=== PATIENT | male | born 1930 | race Caucasian/White ===

== ENCOUNTER → 2019-02-16 | Outpatient (CLI) | payer MEDICARE, BC ==
[2019-02-16 09:03] LABS: HCT 40.8 % (39.0-53.0); HGB 13.4 gm/dL (13.0-17.5); MCH 30.9 pg (25.0-35.0); MCHC 32.8 g/dL (31.0-37.0); MCV 94.4 fL (80.0-100.0); Mean Platelet Volume 7.7; Platelet Count 143 k/uL (150-450); RBC 4.33 m/uL (4.30-5.90); RDW 12.8 % (11.5-15.5); WBC 3.9 k/uL (3.8-10.6)
[2019-02-16 15:55] LABS: African American GFR (CKD) 78.1 (60.0-200.0); Anion Gap 9.6 mmol/L (4.00-12.00); Carbon Dioxide 26.4 mmol/L (21.6-31.8); Chol/HDL Ratio 2.47; LDL Cholesterol,Calculated 60.8 mg/dL (0.0-131.0); Non-African American GFR(CKD) 67.4 (60.0-200.0); VLDL Calculation 14.2 mg/dL (5.00-40.00)
== END | disposition home or self-care (01) ==
LOC: LABWHC1 08:18
PROVIDERS: ATTEND Internal Medicine Cardiovascular Disease
DX: E78.2 Mixed hyperlipidemia (principal); I48.11 Longstanding persistent atrial fibrillation
CPT/HCPCS: 36415; 80051; 80061; 82565; 84443; 84450; 84460; 84520; 85027

== ENCOUNTER 2020-10-06 22:31 | Observation (INO) | payer MEDICARE, BC ==
[2020-10-06] MEDS ORDERED: SODIUM CHLORIDE 0.9% 1,000 ML IV STA (22:34)
[2020-10-06] MEDS ORDERED: ONDANSETRON 4 MG/2 ML VIAL IVP STA (22:34)
[2020-10-06] MEDS ORDERED: MAG HYDROX/AL HYDROX/SIMETH 30 ML, HYOSCYAMINE ELIXIR 10 ML PO STA ×2 (22:34)
[2020-10-06] MEDS ORDERED: PANTOPRAZOLE 40 MG/10 ML VIAL IVP STA (22:34)
[2020-10-06 23:19] LABS: Basophils % (A) 0 %; Eosinophils # (A) 0.1 k/uL (0-0.7); Eosinophils % (A) 1 %; HCT 34.6 % (39.0-53.0); HGB 12.3 gm/dL (13.0-17.5); Lymphocytes # (A) 0.5 k/uL (1.0-4.8); Lymphocytes % (A) 7 %; MCH 33.2 pg (25.0-35.0); MCHC 35.6 g/dL (31.0-37.0); MCV 93.3 fL (80.0-100.0); Mean Platelet Volume 8.1; Monocytes # (A) 0.7 k/uL (0-1.0); Monocytes % (A) 10 %; Neutrophils # (A) 5.9 k/uL (1.3-7.7); Neutrophils % (A) 81 %; Platelet Count 146 k/uL (150-450); RBC 3.71 m/uL (4.30-5.90); RDW 12.7 % (11.5-15.5); WBC 7.3 k/uL (3.8-10.6)
--- NOTE | 2020-10-06 23:24 | XR ---
EXAMINATION TYPE: XR chest 2V DATE OF EXAM: 10/06/2020 COMPARISON: 08/03/2012 HISTORY: Weakness TECHNIQUE: FINDINGS: There is some coarse interstitial density in the mid and lower lung orozco. Heart appears e nlarged. There are sternal wires. Thoracic aorta is atheromatous. There are chest leads. There is no pleural effusion. IMPRESSION: Pulmonary interstitial infiltrates could be mild edema and appears new compared to old ex am. Mild acute heart failure is possible.
[2020-10-06 23:30] LABS: Partial Thromboplastin Time 25.1 sec (22.0-30.0); Prothrombin Time 10.8 sec (9.0-12.0)
[2020-10-06 23:40] LABS: ALT 13 U/L (4-49); AST 29 U/L (17-59); African American GFR (CKD) >90 (>60 ml/min/1.73 sqM); Alkaline Phosphatase 69 U/L (38-126); Anion Gap 10 mmol/L; Blood Urea Nitrogen 10 mg/dL (9-20); Calcium 9.1 mg/dL (8.4-10.2); Carbon Dioxide 23 mmol/L (22-30); Chloride 105 mmol/L (98-107); Creatine Kinase 64 U/L (55-170); Glucose 123 mg/dL (74-99); Magnesium 1.5 mg/dL (1.6-2.3); Non-African American GFR(CKD) 79 (>60 ml/min/1.73 sqM); Phosphorus 3.2 mg/dL (2.5-4.5); Potassium 3.8 mmol/L (3.5-5.1); Sodium 138 mmol/L (137-145); Total Bilirubin 0.4 mg/dL (0.2-1.3); Total Protein 6.4 g/dL (6.3-8.2)
--- NOTE | 2020-10-06 23:53 | ED ---
Chest Pain HPI - General Chief Complaint: Chest Pain Stated Complaint: heartburn Time Seen by Provider: 10/06/20 22:33 Source: patient, EMS, RN notes reviewed, old records reviewed Mode of arrival: EMS Limitations: no limitations - History of Present Illness Initial Comments: This is an 81-year-old male DF for evaluation patient Dese for evaluation rega rds to some chest pain and some neck pain that occurred tonight. May be going on for 2 or 3 days at this point. Patient does have history of heart disease and CABG. Patient is suffering from some mild dementia so is a poor story and also having difficulty with history. Son is at bedside only altered to combined to tell history. Patient states the pain is episodic for the last 3 days some nausea feels like reflux or burning pain. Patient also has significant lower extremity edema and swelling MD Complaint: chest pain, other (Lower extremity edema) -: days(s) Onset: during rest, during exertion Pain Location: substernal Pain Radiation: none Severity: mild Severity scale (1-10): 2 Quality: tightness, sharp Consistency: intermittent Improves With: nothing Worsens With: nothing Context: other (none) Anginal Symptoms: nausea Other Symptoms: other (none) Treatments Prior to Arrival: none - Related Data Home Medications Medication Instructions Recorded Confirmed Aspirin 325 mg PO DAILY 11/29/13 11/30/13 Atenolol 50 mg PO DAILY 11/29/13 11/30/13 Cyanocobalamin [Vitamin B-12] 1,000 mcg PO DAILY@1200 11/29/13 11/30/13 Enalapril [Vasotec] 10 mg PO DAILY 11/29/13 11/30/13 Isosorbide Mononitrate [Imdur] 30 mg PO DAILY 11/29/13 11/30/13 Nitroglycerin Sl Tabs [Nitrostat] 0.4 mg SUBLINGUAL Q5M PRN 11/29/13 11/30/13 Omeprazole [PriLOSEC] 20 mg PO AC-BRKFST 11/29/13 11/30/13 Simvastatin [Zocor] 80 mg PO HS 11/29/13 11/29/13 minoxidiL [Minoxidil] 5 mg PO DAILY 11/29/13 11/30/13 Previous Rx's Medication Instructions Recorded HYDROcodone/APAP 7.5-325MG [[place] 1 each PO Q4H PRN 30 Days tab 12/03/13 7.5] Allergies Allergy/AdvReac Type Severity Reaction Status Date / Time No Known Allergies Allergy Verified 10/06/20 22:45 Review of Systems ROS Statement: Those systems with pertinent positive or pertinent negative responses have been documented in the HPI. ROS Other: All systems not noted in ROS Statement are negative. EKG Findings - EKG Comments: EKG Findings:: EKG shows A. fib 70 QRS 90 QTC 414 Past Medical History Past Medical History: Coronary Artery Disease (CAD), Cancer, Chest Pain / Angina, GERD/Reflux, Hyperlipidemia, Hypertension History of Any Multi-Drug Resistant Organisms: None Reported Past Surgical History: Bowel Resection, Coronary Bypass/CABG Additional Past Surgical History / Comment(s): CABG 2001, colon colostomy Past Psychological History: No Psychological Hx Reported Smoking Status: Former smoker Past Alcohol Use History: Daily Past Drug Use History: None Reported General Exam General appearance: alert, in no apparent distress Head exam: Present: atraumatic, normocephalic, normal inspection Eye exam: Present: normal appearance, PERRL, EOMI. Absent: scleral icterus, conjunctival injection, periorbital swelling ENT exam: Present: normal exam, mucous membranes moist Neck exam: Present: normal inspection. Absent: tenderness, meningismus, lymphadenopathy Respiratory exam: Present: normal lung sounds bilaterally. Absent: respiratory distress, wheezes, rales, rhonchi, stridor Cardiovascular Exam: Present: regular rate, normal rhythm, normal heart sounds. Absent: systolic murmur, diastolic murmur, rubs, gallop, clicks GI/Abdominal exam: Present: soft, normal bowel sounds. Absent: distended, tenderness, guarding, rebound, rigid Extremities exam: Present: normal inspection, full ROM, normal capillary refill, other (BL LE edema). Absent: tenderness, pedal edema, joint swelling, calf tenderness Back exam: Present: normal inspection Neurological exam: Present: alert, oriented X3, CN II-XII intact Psychiatric exam: Present: normal affect, normal mood Skin exam: Present: warm, dry, intact, normal color. Absent: rash Course Vital Signs 10/06/20 10/06/20 10/06/20 22:32 23:00 23:20 Temperature 98.2 F Pulse Rate 87 85 Pulse Rate [ 78 [employer] ] Respiratory 18 16 Rate Blood Pressure 195/108 204/107 O2 Sat by Pulse 98 98 Oximetry 10/06/20 23:30 Temperature Pulse Rate 80 Pulse Rate [ [employer] ] Respiratory 18 Rate Blood Pressure 169/100 O2 Sat by Pulse 98 Oximetry - Reevaluation(s) Reevaluation #1: 10/07/20 00:29 Medical record is reviewed Reevaluation #2: 10/07/20 00:29 Patient's chest pain is episodic but recurrent here in the ER Reevaluation #3: 10/07/20 00:29 Patient has no shortness of breath - Consultations Consultation #1: Spoke with EM who will admit this patient Chest Pain MDM - MDM 89 male to the ER for evaluation patient presents today for evaluation regards to chest pain some shortness of breath lower extremity edema. Patient does have persistent chest pain here in the ER troponin negative elevated BNP with pulmonary edema. No trauma edema we will admit for diuresis Disposition Clinical Impression: Chest pain, Bilateral leg edema, CHF (congestive heart failure), Pulmonary edema Disposition: ADMITTED IP TO THIS HOSP Condition: Good Is patient prescribed a controlled substance at d/c from ED?: No Referrals: [facility],Clinic [Primary Care Provider] - 1-2 days
[2020-10-07 01:01] LABS: Appearance,Urine Clear (Clear); Bilirubin,Urine Negative (Negative); Blood,Urine Negative (Negative); Color,Urine Yellow; Glucose,Urine (UA) Negative (Negative); Hyaline Casts,Urine 20 /lpf (0-2); Ketones,Urine Negative (Negative); Leukocyte Esterase,Urine Negative (Negative); Mucus,Urine Rare /hpf; Nitrite,Urine Negative (Negative); PH, Urine 5.5 (5.0-8.0); Protein,Urine 1+ (Negative); RBC,Urine 1 /hpf (0-5); Specific Gravity,Urine 1.018 (1.001-1.035); Squamous Epithelial Cell,Urine <1 /hpf (0-4); Urobilinogen,Urine <2.0 mg/dL (<2.0); WBC,Urine 1 /hpf (0-5)
[2020-10-07] MEDS: FUROSEMIDE 10 MG/ML 4 ML VIAL IV SCH ×3 (01:38→19:37)
[2020-10-07] MEDS ORDERED: QUEtiapine 25 MG TAB PO PRN ×3 (11:23→14:36)
[2020-10-07] MEDS: lisinopriL 20 MG TAB PO SCH (12:43)
[2020-10-07] MEDS: atenoloL 50 MG TAB PO SCH (12:44)
[2020-10-07] MEDS: ISOSORBIDE MONONITRATE ER 30 MG TAB.ER.24H PO SCH (12:44)
--- NOTE | 2020-10-07 12:49 | CONS ---
CONSULTATION HISTORY OF PRESENT ILLNESS: Jose is an 89-year-old gentleman with a history of dementia, coronary artery disease status post CABG, who is brought in with symptoms of chest pain. He describes it as a sharp pericardial pain associated with some nausea and also has bilateral lower extremity edema. He is admitted for diagnosis of chest pain and heart failure. At the time of my evaluation this morning, he appears comfortable at rest. Blood pressure is poorly controlled. Three sets of cardiac enzymes are negative. EKG shows atrial fibrillation with nonspecific ST-T wave changes. Patient is not a candidate for long- term anticoagulation because of risk of fall. PAST MEDICAL HISTORY: Past medical history significant for permanent atrial fibrillation, hypertension, dyslipidemia, coronary artery disease status post coronary artery bypass grafting. MEDICATIONS: Current medications include minoxidil 5 mg daily. Zocor 80 mg daily, Prilosec 20, Imdur 30, [place], enalapril, atenolol, aspirin. ALLERGIES: There are no known drug allergies. Family history, social history and review of systems: I am unable to obtain from the patient. PHYSICAL EXAMINATION: On exam, patient is comfortable at rest. Afebrile. Heart rate is 80 beats per minute. Blood pressure 127/57. Respiratory rate is 18. CHEST exam reveals good air entry bilaterally. HEART exam reveals first and second heart sounds and a systolic murmur at the apex. ABDOMEN is soft. Exam of EXTREMITIES: There is bilateral 2+ pitting edema. Peripheral pulses are felt. LABORATORY DATA: Labs show a potassium of 3.8, creatinine is 0.8. Hemoglobin is 12.3. Platelet count is 146. BNP is elevated. ASSESSMENT: 1. Acute exacerbation of chronic congestive heart failure. 2. Precordial chest pain. 3. Dementia. 4. Status post CABG. 5. Permanent atrial fibrillation. PLAN: We will treat the patient with IV Lasix. Obtain a 2D echo. Continue simvastatin, Imdur, Vasotec, atenolol and aspirin that he is currently on. The patient is not a candidate for anticoagulation because of his risk of fall. MMODL / IJN: [id number] /
--- NOTE | 2020-10-07 13:09 | P.HPIM ---
History of Present Illness 89-year-old the female was admitted for chest pain patient although denied any chest pain to me apparently patient was complaining of for sore throat and chest congestion as today because of which his is concerned and brought him to ER. Patient has a significant dementia appears to be a and 1-2 which is his baseline although patient is able to provide good history. Patient dementia has been worsening and his is thinking of placing him in the [facility]. Patient is unable to characterize the chest pain denied any radiation denied any lightheadedness nausea or diaphoresis associated with that patient chest pain is nonpleuritic. Apparently patient was complaining of episodic burning in ER and patient was started on Protonix. Patient was also having bilateral pedal has been going on for about a half weeks. Patient had BNP of around 2200 REVIEW OF SYSTEMS: All other review of systems are negative except those mentioned above PHYSICAL EXAMINATION: GENERAL: The patient is alert and oriented x3, not in any acute distress. Well developed, well nourished. HEENT: Pupils are round and equally reacting to light. EOMI. No scleral icterus. No conjunctival pallor. Normocephalic, atraumatic. Patient does have pharyngeal erythema. No thyromegaly. CARDIOVASCULAR: S1 and S2 present. No murmurs, rubs, or gallops. PULMONARY: Chest is clear to auscultation, no wheezing or crackles. ABDOMEN: Soft, nontender, nondistended, normoactive bowel sounds. No palpable organomegaly. MUSCULOSKELETAL: No joint swelling or deformity. EXTREMITIES: No cyanosis, clubbing, extensive bilateral pedal edema mostly non pitting is mild pitting edema NEUROLOGICAL: Gross neurological examination did not reveal any focal deficits. SKIN: No rashes. Assessment and plan -Chest pain atypical: Troponins were negative, EKG showed atrial fibrillation. Patient appears to have permanent A. fib patient is on Eliquis at home which will be resumed-Permanent atrial fibrillation not on any anti-correlation at this time. 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 -Bilateral lower extremity edema mostly appears to be secondary to venous insufficiency there may be a competent of heart failure as well as echocardiogram is being obtained patient is on IV Lasix which will be continued -Coronary artery disease with previous history of CABG in the past -Hyperlipidemia -Hypertension -Gastroesophageal reflux disease For above-mentioned chronic medical problems patient will be resumed on appropriate home medications although home medications are not verified ye1-2 DVT prophylaxis: Past Medical History Past Medical History: Coronary Artery Disease (CAD), Cancer, Chest Pain / Angina, GERD/Reflux, Hyperlipidemia, Hypertension History of Any Multi-Drug Resistant Organisms: None Reported Past Surgical History: Bowel Resection, Coronary Bypass/CABG Additional Past Surgical History / Comment(s): CABG 2001, colon colostomy Past Psychological History: No Psychological Hx Reported Smoking Status: Unknown if ever smoked Past Alcohol Use History: Daily Past Drug Use History: None Reported Medications and Allergies Home Medications Medication Instructions Recorded Confirmed Type Aspirin 325 mg PO DAILY 11/29/13 10/07/20 History Atenolol 50 mg PO DAILY 11/29/13 10/07/20 History Cyanocobalamin [Vitamin B-12] 1,000 mcg PO DAILY@1200 11/29/13 11/30/13 History Enalapril [Vasotec] 10 mg PO DAILY 11/29/13 11/30/13 History Isosorbide Mononitrate [Imdur] 30 mg PO DAILY 11/29/13 11/30/13 History Nitroglycerin Sl Tabs [Nitrostat] 0.4 mg SUBLINGUAL Q5M PRN 11/29/13 11/30/13 History Omeprazole [PriLOSEC] 20 mg PO AC-BRKFST 11/29/13 11/30/13 History Simvastatin [Zocor] 80 mg PO HS 11/29/13 11/29/13 History minoxidiL [Minoxidil] 2.5 mg PO BID 11/29/13 11/30/13 History HYDROcodone/APAP 7.5-325MG [[place] 1 each PO Q4H PRN 30 Days tab 12/03/13 Rx 7.5] Apixaban [Eliquis] 2.5 mg PO BID 10/07/20 10/07/20 History Spironolactone 50 mg PO DAILY 10/07/20 10/07/20 History Allergies Allergy/AdvReac Type Severity Reaction Status Date / Time No Known Allergies Allergy Verified 10/07/20 12:05 Physical Exam Vitals: Vital Signs Temp Pulse Pulse Pulse Resp BP BP 10/07/20 12:42 80 169/74 10/07/20 07:10 98.3 F 83 16 166/103 10/07/20 02:23 97.5 F L 98 20 157/70 10/07/20 01:41 98.2 F 76 16 185/96 10/07/20 01:00 66 18 179/85 10/07/20 00:47 73 18 173/88 10/07/20 00:00 177/89 10/06/20 23:30 80 18 169/100 10/06/20 23:20 78 10/06/20 23:00 85 16 204/107 10/06/20 22:32 98.2 F 87 18 195/108 Pulse Ox 10/07/20 12:42 10/07/20 07:10 99 10/07/20 02:23 98 10/07/20 01:41 100 10/07/20 01:00 98 10/07/20 00:47 10/07/20 00:00 98 10/06/20 23:30 98 10/06/20 23:20 10/06/20 23:00 98 10/06/20 22:32 98 Intake and Output 10/06/20 10/07/20 10/07/20 22:59 06:59 14:59 Output Total 300 Balance -300 Output: Stool 300 Other: # Voids 2 Weight 79.379 kg 79.379 kg Results CBC & Chem 7: 10/06/20 23:00 10/06/20 23:00 Labs: Abnormal Lab Results - Last 24 Hours (Table) 10/06/20 10/06/20 10/07/20 Range/Units 23:00 23:00 00:38 RBC 3.71 L (4.30-5.90) m/uL Hgb 12.3 L (13.0-17.5) gm/dL Hct 34.6 L (39.0-53.0) % Plt Count 146 L (150-450) k/uL Lymphocytes # 0.5 L (1.0-4.8) k/uL Glucose 123 H (74-99) mg/dL Magnesium 1.5 L (1.6-2.3) mg/dL Urine Protein 1+ H (Negative) Hyaline Casts 20 H (0-2) /lpf Urine Mucus Rare H (None) /hpf Thrombosis Risk Factor Assmnt - Choose All That Apply Each Risk Factor Represents 3 Points: Age 75 years or older Thrombosis Risk Factor Assessment Total Risk Factor Score: 3 Thrombosis Risk Factor Assessment Level: Moderate Risk
[2020-10-07] MEDS: MAGNESIUM SULFATE-D5W PMX 1 GM in DEXTROSE/WATER 1 100ML.BAG IVPB SCH ×2 (14:27→15:40)
[2020-10-07] MEDS: APIXABAN 2.5 MG TABLET PO SCH (19:37)
[2020-10-07] MEDS ORDERED: ATORVASTATIN 40 MG TAB PO SCH (21:00)
[2020-10-08 05:57] LABS: African American GFR (CKD) 68 (>60 ml/min/1.73 sqM); Anion Gap 9 mmol/L; Blood Urea Nitrogen 14 mg/dL (9-20); Calcium 9.2 mg/dL (8.4-10.2); Carbon Dioxide 27 mmol/L (22-30); Chloride 103 mmol/L (98-107); Glucose 94 mg/dL (74-99); Non-African American GFR(CKD) 59 (>60 ml/min/1.73 sqM); Potassium 4.4 mmol/L (3.5-5.1); Sodium 139 mmol/L (137-145)
[2020-10-08 07:23] VITALS: RESP 16; TEMP 97.7
[2020-10-08] MEDS ORDERED: PANTOPRAZOLE 40 MG TABLET PO SCH (07:30)
[2020-10-08] MEDS: APIXABAN 2.5 MG TABLET PO SCH (08:26)
[2020-10-08] MEDS: ISOSORBIDE MONONITRATE ER 30 MG TAB.ER.24H PO SCH (08:26)
[2020-10-08] MEDS: lisinopriL 20 MG TAB PO SCH (08:27)
[2020-10-08] MEDS: atenoloL 50 MG TAB PO SCH (08:27)
[2020-10-08] MEDS: FUROSEMIDE 10 MG/ML 4 ML VIAL IV SCH (08:28)
[2020-10-08 08:37] VITALS: BP 127/60
[2020-10-08] MEDS ORDERED: SPIRONOLACTONE 25 MG TAB PO SCH (09:45)
[2020-10-08] MEDS ORDERED: FUROSEMIDE 40 MG TAB PO SCH (09:45)
--- NOTE | 2020-10-08 10:43 | P.PN ---
Subjective This is a pleasant 89-year-old male past medical history significant for coronary artery disease status post bypass grafting, hypertension, dyslipidemia, dementia, daily alcohol intake and heart failure of unknown type. He follows at the [facility] clinic. He is seen and examined resting comfortably lying flat in bed in no acute distress. He denies symptoms of chest pain or shortness of breath. He has ongoing lower extremity edema. Family is at the bedside. We are currently awaiting an echocardiogram. Blood pressure 127/60 heart rate 57 afebrile maintaining oxygen saturation on room air. Laboratory data reviewed, sodium 139, potassium 4.4, creatinine 1.11. Currently maintained on Eliquis 2.5 mg twice a day, atenolol 50 mg daily, atorvastatin 40 mg daily, Imdur 30 mg daily, lisinopril 20 mg daily, Lasix 40 mg IV twice a day. Telemetry tracings reveal persistent atrial fibrillation with controlled ventricular rates. GENERAL: Well-appearing, well-nourished and in no acute distress. NECK: Supple without JVD or thyromegaly. LUNGS: Breath sounds clear to auscultation bilaterally. Respiration equal and unlabored. No wheezes, rales or rhonchi. HEART: Irregular rate and rhythm without murmurs, rubs or gallops. S1 and S2 hea rd. EXTREMITIES: Normal range of motion, 2+ bilateral lower extremity pitting edema. No clubbing or cyanosis. Peripheral pulses intact. ASSESSMENT Acute on chronic heart failure, unknown type Coronary artery disease status post bypass grafting Chronic persistent atrial fibrillation on long-term anticoagulation Hypertension Dyslipidemia Dementia Daily alcohol intake PLAN Clinically the patient appears very comfortable, we will transition to oral diuretics Lasix 40 mg by mouth daily. Resume Aldactone 50 mg daily as previously ordered. Await echocardiogram. Continue to monitor. Further recommendations to follow based upon clinical course. Nurse Practitioner note has been reviewed, I agree with a documented findings and plan of care. Patient was seen and examined. Objective - Vital Signs Vital signs: Vital Signs Temp 97.7 F 10/08/20 07:10 Pulse 64 10/08/20 08:00 Resp 16 10/08/20 07:10 BP 127/60 10/08/20 08:25 Pulse Ox 98 10/08/20 07:10 Intake & Output 10/07/20 10/08/20 10/08/20 18:59 06:59 18:59 Intake Total 520 Balance 520 Intake: IV 520 Sodium Chloride 0.9% 1, 520 000 ml @ 130 mls/hr IV . Q7H42M STA Rx#:[id number] Other: # Voids 5 3 # Bowel Movements 1 - Labs CBC & Chem 7: 10/06/20 23:00 10/08/20 05:05
--- NOTE | 2020-10-08 12:09 | P.DS ---
Providers Date of admission: 10/07/20 00:32 Attending physician: Charanjit Loya Consults: 10/07/20 00:31 Consult Physician Routine Consulting Provider: Orlando Edwards Consult Reason/Comments: chf,cp Do you want consulting provider notified?: Yes Primary care physician: [place] [facility] Course: 89-year-old the female was admitted for chest pain patient although denied any chest pain to me apparently patient was complaining of for sore throat and chest congestion as today because of which his is concerned and brought him to ER. Patient has a significant dementia appears to be a and 1-2 which is his baseline although patient is able to provide good history. Patient dementia has been worsening and his is thinking of placing him in the skilled nursing. Patient is unable to characterize the chest pain denied any radiation denied any lightheadedness nausea or diaphoresis associated with that patient chest pain is nonpleuritic. Apparently patient was complaining of episodic burning in ER and patient was started on Protonix. Patient was also having bilateral pedal has been going on for about a half weeks. Patient had BNP of around 2200 10/08/2020 Patient is clinically doing well patient the mental status is at his baseline. Patient chest pain resolved which is mostly musculoskeletal and secondary to chest congestion. Patient the upper respiratory symptoms improved as well patient is alert oriented 2. Patient pedal edema significant improved patient related to my most probably peripheral edema from minoxidil and vasodilation from from minoxidil which was discontinued as patient is not requiring this medication patient was hypotensive yesterday. Patient will be discharged on Lasix and kidney function he to be closely monitored. Considering patient dementia family is requesting a male physician close to where they live. PHYSICAL EXAMINATION: GENERAL: The patient is alert and oriented x2, not in any acute distress. Well developed, well nourished. HEENT: Pupils are round and equally reacting to light. EOMI. No scleral icterus. No conjunctival pallor. Normocephalic, atraumatic. Patient does have pharyngeal erythema. No thyromegaly. CARDIOVASCULAR: S1 and S2 present. No murmurs, rubs, or gallops. PULMONARY: Chest is clear to auscultation, no wheezing or crackles. ABDOMEN: Soft, nontender, nondistended, normoactive bowel sounds. No palpable organomegaly. MUSCULOSKELETAL: No joint swelling or deformity. EXTREMITIES: No cyanosis, clubbing, extensive bilateral pedal edema mostly nonpitting is mild pitting edema NEUROLOGICAL: Gross neurological examination did not reveal any focal deficits. SKIN: No rashes. Assessment and plan -Chest pain atypical: Troponins were negative, EKG showed atrial fibrillation. Patient appears to have permanent A. fib patient is on Eliquis at home which will be resumed-Permanent atrial fibrillation not on any anti-correlation at this time. 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 -Coronary artery disease with previous history of CABG in the past -Hyperlipidemia -Hypertension -Gastroesophageal reflux disease Patient Condition at Discharge: Good Plan - Discharge Summary Discharge Rx Participant: No New Discharge Prescriptions: New Aspirin 81 mg PO DAILY #30 chewable Furosemide [Lasix] 40 mg PO DAILY #30 tab Continue Nitroglycerin Sl Tabs [Nitrostat] 0.4 mg SUBLINGUAL Q5M PRN PRN Reason: Chest Pain Isosorbide Mononitrate [Imdur] 30 mg PO DAILY Cyanocobalamin [Vitamin B-12] 1,000 mcg PO DAILY@1200 Omeprazole [PriLOSEC] 20 mg PO AC-BRKFST Simvastatin [Zocor] 80 mg PO HS Atenolol 50 mg PO DAILY Apixaban [Eliquis] 2.5 mg PO BID Spironolactone 50 mg PO DAILY Changed Enalapril [Vasotec] 5 mg PO DAILY #0 Discontinued Aspirin 325 mg PO DAILY minoxidiL [Minoxidil] 2.5 mg PO BID Discharge Medication List Atenolol 50 mg PO DAILY 11/29/13 [History] Cyanocobalamin [Vitamin B-12] 1,000 mcg PO DAILY@1200 11/29/13 [History] Isosorbide Mononitrate [Imdur] 30 mg PO DAILY 11/29/13 [History] Nitroglycerin Sl Tabs [Nitrostat] 0.4 mg SUBLINGUAL Q5M PRN 11/29/13 [History] Omeprazole [PriLOSEC] 20 mg PO AC-BRKFST 11/29/13 [History] Simvastatin [Zocor] 80 mg PO HS 11/29/13 [History] Apixaban [Eliquis] 2.5 mg PO BID 10/07/20 [History] Spironolactone 50 mg PO DAILY 10/07/20 [History] Aspirin 81 mg PO DAILY #30 chewable 10/08/20 [Rx] Enalapril [Vasotec] 5 mg PO DAILY #0 10/08/20 [Rx] Furosemide [Lasix] 40 mg PO DAILY #30 tab 10/08/20 [Rx] Follow up Appointment(s)/Referral(s): Daren Mullins MD [STAFF PHYSICIAN] - 1 Week [facility],Clinic [Primary Care Provider] - 3 Days Ambulatory/Diagnostic Orders: Basic Metabolic Panel [LAB.AMB] Time Frame: 3 Days, Location: None Selected Discharge Disposition: HOME WITH HOME HEALTH SERVICES
[2020-10-08 13:38] VITALS: BMI 23.7
[2020-10-08 14:18] VITALS: PULSE 85
--- NOTE | 2020-10-08 19:00 | ECHOF ---
Referral Reason:chf, CP MEASUREMENTS -------- HEIGHT: 180.3 cm WEIGHT: 800.6 kg BP: 137/51 IVSd: 1.4 cm (0.6 - 1.1) LVIDd: 4.2 cm (3.9 - 5.3) LVPWd: 1.5 cm (0.6 - 1.1) EDV(Teich): 81 ml IVSs: 2.1 cm LVIDs: 2.3 cm LVPWs: 2.3 cm %IVS Thck: 42 % ESV(Teich): 19 ml EF(Teich): 77 % %FS: 45 % SV(Teich): 62 ml RVIDd: 2.8 cm (< 3.3) IVC: 21.55 mm LALs A4C: 7.0 cm LAAs A4C: 31.6 cm LAESV A-L A4C: 121 ml LAESV MOD A4C: 111 ml LALs A2C: 7.0 cm LAAs A2C: 31.1 cm LAESV A-L A2C: 116 ml LAESV MOD A2C: 106 ml LAESV(A-L): 119 ml LAESV Index (A-L): 22.26 ml/m Ao Diam: 3.9 cm (2.0 - 3.7) LA Diam: 4.8 cm (2.7 - 3.8) AV Cusp: 1.9 cm (1.5 - 2.6) EPSS: 0.9 cm MV E Samuel: 1.00 m/s MV DecT: 142 ms MV Dec Adams: 7.1 m/s MV A Samuel: 0.43 m/s MV E/A Ratio: 2.35 MV PHT: 41 ms MR Vmax: 4.98 m/s MR maxP.19 mmHg AV Vmax: 1.50 m/s AV maxP.04 mmHg AR Vmax: 4.08 m/s AR maxP.61 mmHg AR PHT: 1255 ms AR Dec Time: 4327 ms AR Dec Adams: 0.9 m/s TR Vmax: 2.22 m/s TR maxP.74 mmHg RAP: 15.00 mmHg RVSP: 34.74 mmHg MV EF SLOPE: 126.95 mm/s (70 - 150) MV EXCURSION: 16.01 mm (> 18.000) FINDINGS -------- This was a technically good study. The left ventricular size is normal. There is moderate concentric left ventricular hypertrophy. O verall left ventricular systolic function is normal with, an EF between 55 - 60 %. Normal LAP Grade 1 Diastolic Dysfunction. The right ventricle is normal in size. The left atrium is moderately dilated. Normal LA size by volume 22+/-6 ml/m2. The right atrial size is normal. Aneurysmal Interatrial septum. Possible ASD Aortic valve is trileaflet and is mildly thickened. There is moderate aortic regurgitation. The mitral valve is normal. Yecvuveb-fc-qufbby mitral regurgitation is present. The tricuspid valve appears structurally normal. Swkq-rf-zndqpaze tricuspid regurgitation present. Right ventricular systolic pressure is normal at < 35 mmHg. There is no pulmonic regurgitation present. The aortic root size is normal. The inferior vena cava is mildly dilated. There is a small, generalized pericardial effusion present. CONCLUSIONS -------- 1. The left ventricular size is normal. 2. There is moderate concentric left ventricular hypertrophy. 3. Overall left ventricular systolic function is normal with, an EF between 55 - 60 %. 4. Normal LAP Grade 1 Diastolic Dysfunction. 5. The left atrium is moderately dilated. 6. Normal LA size by volume 22+/-6 ml/m2. 7. Aneurysmal Interatrial septum. 8. Possible ASD 9. Aortic valve is trileaflet and is mildly thickened. 10. There is moderate aortic regurgitation. 11. Mymsllnx-fc-rcqnby mitral regurgitation is present. 12. Hkks-er-paltueod tricuspid regurgitation present. 13. The inferior vena cava is mildly dilated. 14. There is a small, generalized pericardial effusion present. SENIOR QA ANALYST: Amelia Luu, [facility]
== END 2020-10-08 15:20 | disposition home health service (06) ==
LOC: EC 22:31 → 6NMEDSUR 10-07 00:32
PROVIDERS: ADMIT Hospitalist; ATTEND Hospitalist
DX: R07.89 Other chest pain (principal); I11.0 Hypertensive heart disease with heart failure; I50.9 Heart failure, unspecified; I25.10 Atherosclerotic heart disease of native coronary artery without angina pectoris; I48.21 Permanent atrial fibrillation; F03.90 Unspecified dementia, unspecified severity, without behavioral disturbance, psychotic disturbance, mood disturbance, and anxiety; I87.2 Venous insufficiency (chronic) (peripheral); J40 Bronchitis, not specified as acute or chronic; J02.9 Acute pharyngitis, unspecified; I95.9 Hypotension, unspecified; E78.5 Hyperlipidemia, unspecified; K21.9 Gastro-esophageal reflux disease without esophagitis; Z79.01 Long term (current) use of anticoagulants; Z79.82 Long term (current) use of aspirin; Z79.899 Other long term (current) drug therapy; Z95.1 Presence of aortocoronary bypass graft; Z87.891 Personal history of nicotine dependence; Z93.3 Colostomy status; Z90.49 Acquired absence of other specified parts of digestive tract; Z91.81 History of falling; Z85.9 Personal history of malignant neoplasm, unspecified
CPT/HCPCS: 96376 ×2; 96361 ×2; 96365; 96366; 96375 ×2; 99285; 36415; 93005; 93306; 83880; 80053; 80048; 82550; 83735; 84100; 84484 ×2; 85025; 85610; 85730; 81001; 71046; G0378 ×2; J1940 ×2; J2405; J3475; C9113

== ENCOUNTER → 2020-10-19 | Outpatient (CLI) | payer MEDICARE, BC ==
[2020-10-19 16:44] LABS: Basophils # (A) 0.03 X 10*3/uL (0.00-0.10); Basophils % (A) 0.6 %; Eosinophils # (A) 0.01 X 10*3/uL (0.04-0.35); Eosinophils % (A) 0.2 %; HCT 38.5 % (39.6-50.0); HGB 12.3 g/dL (13.0-17.0); Lymphocytes # (A) 0.76 X 10*3/uL (0.90-5.00); Lymphocytes % (A) 13.9 %; MCH 31.1 pg (27.0-32.0); MCHC 31.9 g/dL (32.0-37.0); MCV 97.2 fL (80.0-97.0); Mean Platelet Volume 12.1 fL (9.5-12.2); Monocytes # (A) 0.65 X 10*3/uL (0.20-1.00); Monocytes % (A) 11.9 %; Neutrophils # (A) 3.97 X 10*3/uL (1.80-7.70); Neutrophils % (A) 72.8 %; Platelet Count 171 X 10*3/uL (140-440); RBC 3.96 X 10*6/uL (4.40-5.60); RDW 12.5 % (11.5-14.5); WBC 5.45 X 10*3/uL (4.50-10.00)
[2020-10-19 21:32] LABS: ALT 12 U/L (10-49); AST 21 U/L (14-35); African American GFR (CKD) 62.2 (60.0-200.0); Albumin/Globulin Ratio 1.95 (1.60-3.17); Alkaline Phosphatase 56 U/L (41-126); BUN/Creat Ratio 15.83 Ratio (12.00-20.00); C Reactive Protein <0.4 mg/dL (0.0-0.8); Calcium 9.2 mg/dL (8.7-10.3); Carbon Dioxide 25.4 mmol/L (21.6-31.8); Chloride 106 mmol/L (96-109); Globulin 2.2 g/dL (1.6-3.3); Glucose 103 mg/dL (70-110); Non-African American GFR(CKD) 53.7 (60.0-200.0); Potassium 4.7 mmol/L (3.5-5.5); Sodium 142 mmol/L (135-145); Total Protein 6.5 g/dL (6.2-8.2)
[2020-10-19 22:02] LABS: Erythrocyte Sedimentation Rate 10 mm/Hr (0-20)
== END | disposition home or self-care (01) ==
LOC: LABWHC1 09:19
PROVIDERS: ATTEND Family Medicine
DX: I50.9 Heart failure, unspecified (principal); R41.3 Other amnesia
CPT/HCPCS: 36415; 80053; 82607; 82746; 83880; 85025; 85652; 86038; 86140; 86780

== ENCOUNTER 2020-11-02 09:27 | Emergency (ER) | payer MEDICARE, BC ==
[2020-11-02 09:34] VITALS: TEMP 97
[2020-11-02] MEDS ORDERED: MORPHINE SULFATE 4 MG/ML SYRINGE IVP STA (09:52)
[2020-11-02 10:15] LABS: Basophils % (A) 1 %; Eosinophils % (A) 0 %; Lymphocytes # (A) 0.5 k/uL (1.0-4.8); Lymphocytes % (A) 9 %; MCH 32.7 pg (25.0-35.0); MCHC 34.3 g/dL (31.0-37.0); MCV 95.2 fL (80.0-100.0); Mean Platelet Volume 8.5; Monocytes # (A) 0.4 k/uL (0-1.0); Monocytes % (A) 8 %; Neutrophils # (A) 4.4 k/uL (1.3-7.7); Neutrophils % (A) 81 %; Platelet Count 159 k/uL (150-450); RBC 3.68 m/uL (4.30-5.90); RDW 13.2 % (11.5-15.5); WBC 5.4 k/uL (3.8-10.6)
[2020-11-02 10:23] LABS: INR 1.1 (<1.2); Partial Thromboplastin Time 23.6 sec (22.0-30.0); Prothrombin Time 11.8 sec (9.0-12.0)
[2020-11-02 10:24] LABS: Albumin 3.8 g/dL (3.5-5.0); Calcium 9.4 mg/dL (8.4-10.2); Potassium 4.2 mmol/L (3.5-5.1); Total Bilirubin 0.9 mg/dL (0.2-1.3); Total Protein 6.3 g/dL (6.3-8.2)
--- NOTE | 2020-11-02 10:43 | CT ---
EXAMINATION TYPE: CT brain bryon [facility]adford DATE OF EXAM: 11/02/2020 COMPARISON: None HISTORY: 89-year-old male with pain after Fall. CT DLP: 1523.9 mGycm Automated exposure control for dose reduction was used. Technique: Examination of the head was done in axial plane without intravenous contrast. Coronal and sagittal reconstructions performed. CT of the cervical spine was obtained in axial plane without intravenous injection of contrast mater ial. Coronal and sagittal reformatted images were obtained from the axial views for evaluation of f ractures, spinal alignment and canal. FINDINGS: Head: Small 4 mm foci of parenchymal contusion age. Left frontal lobe, for example, axial image 41. Small 4 mm foci of subarachnoid blood medial left frontal region, axial image 41. There is mild acute subarachnoid hemorrhage along the left sylvian fissure, axial image 36 and 39. 1 cm extra-axial nodular area anterior right frontal convexity could represent a small meningioma. There is moderate generalized supratentorial volume loss. No evidence for acute ischemic change, mass effect, midline shift, or other additional extra-axial fl uid collection. No hydrocephalus. No effacement of basal subarachnoid cisterns. Boo-white matter dif ferentiation is maintained. Mild patchy white matter hypodensities both cerebral hemispheres and old basal ganglionic lacunar inf arcts. Paranasal sinuses and mastoid air cells are well pneumatized. Orbits and globes are intact. No calvar ial fracture. Cervical spine: No craniocervical junction abnormality, predental space widening, or prevertebral soft tissue swellin g. Preserved alignment of the cervical spine. Moderate degenerative disc disease C6-C7 and mild at additional levels. Hypertrophic facet and uncovertebral joint arthropathy throughout. Changes contribute to mild narrowing of the spinal canal at C5-C6 and C6/C7. Vertebral moderate bilateral neural foraminal stenoses, more severe on the left at C5-C6 and moderate to severe on both sides at C6-C7. Sagittal and coronal reformatted images confirm above findings. COMBINED IMPRESSION: 1. Mild parenchymal contusions in the anterior left frontal lobe with some trace adjacent acute subar achnoid blood. Greater degree of mild acute subarachnoid hemorrhage along the left sylvian fissure. 2. A 1 cm extra-axial lesion anterior right frontal region probably represents a meningioma. 3. Moderate generalized atrophy. No midline shift, hydrocephalus, or herniation. 4. Moderate spondylotic change. No acute fracture or malalignment of the cervical spine. Findings called to Christa SLAUGHTER in the ER at 10:38am.
--- NOTE | 2020-11-02 11:04 | ED ---
Fall HPI <Thor Godoy - Last Filed: 11/02/20 11:25> - General Source: patient, EMS, RN notes reviewed Mode of arrival: EMS <Ronald Goodwin - Last Filed: 11/02/20 11:32> - General Chief Complaint: Fall Stated Complaint: fall Time Seen by Provider: 11/02/20 09:34 - History of Present Illness Initial Comments: Patient is an 89-year-old male that presents to the emergency department via EMS status post fall. Family notes that he was outside putting no relief lower back in the shed when he lost his balance and fell over. EMS noted that he did have abrasions and skin tears to his bilateral lower extremities and upper extremi ties and some to his face. Family reports the patient does take liquids for atrial fibrillation. Patient denied any significant pain. He noted that he was tender over his lateral left knee where a 4cm skin tear was evident. Patient's family does note that he is early stages of dementia but appears to be his baseline as far as alert and orientation go. Patient was in no apparent distress or pain while laying in bed during the examination interview. C-collar was in place. Patient denied any headache nausea vomiting diarrhea constipation fever fatigue chills chest pain first breath. (Ronald Goodwin) - Related Data Home Medications Medication Instructions Recorded Confirmed Atenolol 50 mg PO DAILY 11/29/13 11/02/20 Cyanocobalamin [Vitamin B-12] 1,000 mcg PO DAILY@1200 11/29/13 11/02/20 Isosorbide Mononitrate [Imdur] 30 mg PO DAILY 11/29/13 11/02/20 Nitroglycerin Sl Tabs [Nitrostat] 0.4 mg SUBLINGUAL Q5M PRN 11/29/13 11/02/20 Omeprazole [PriLOSEC] 20 mg PO AC-BRKFST 11/29/13 11/02/20 Simvastatin [Zocor] 80 mg PO HS 11/29/13 11/02/20 Apixaban [Eliquis] 2.5 mg PO BID 10/07/20 11/02/20 Spironolactone 50 mg PO DAILY 10/07/20 11/02/20 Donepezil [Aricept] 10 mg PO DAILY 11/02/20 11/02/20 Previous Rx's Medication Instructions Recorded Aspirin 81 mg PO DAILY #30 chewable 10/08/20 Enalapril [Vasotec] 5 mg PO DAILY #0 10/08/20 Furosemide [Lasix] 40 mg PO DAILY #30 tab 10/08/20 QUEtiapine [SEROquel] 12.5 mg PO HS PRN #0 tab 10/08/20 Allergies Allergy/AdvReac Type Severity Reaction Status Date / Time No Known Allergies Allergy Verified 11/02/20 11:02 Review of Systems ROS Other: All systems not noted in ROS Statement are negative. <Thor Godoy - Last Filed: 11/02/20 11:25> ROS Other: All systems not noted in ROS Statement are negative. <Ronald Goodwin - Last Filed: 11/02/20 11:32> ROS Statement: Those systems with pertinent positive or pertinent negative responses have been documented in the HPI. Past Medical History Past Medical History: Coronary Artery Disease (CAD), Cancer, Chest Pain / Angina, GERD/Reflux, Hyperlipidemia, Hypertension History of Any Multi-Drug Resistant Organisms: None Reported Past Surgical History: Bowel Resection, Coronary Bypass/CABG Additional Past Surgical History / Comment(s): CABG 2001, colon colostomy Past Psychological History: No Psychological Hx Reported Smoking Status: Unknown if ever smoked Past Alcohol Use History: Daily Past Drug Use History: None Reported <Ronald Goodwin - Last Filed: 11/02/20 11:32> General Exam Limitations: no limitations General appearance: alert, in no apparent distress Head exam: Present: normocephalic, normal inspection. Absent: atraumatic (Several abrasions and skin tears to the left side of the face.) Eye exam: Present: normal appearance, PERRL, EOMI. Absent: scleral icterus, conjunctival injection, periorbital swelling Neck exam: Present: normal inspection Respiratory exam: Present: normal lung sounds bilaterally. Absent: respiratory distress, wheezes, rales, rhonchi, stridor Cardiovascular Exam: Present: regular rate, normal rhythm, normal heart sounds. Absent: systolic murmur, diastolic murmur, rubs, gallop, clicks GI/Abdominal exam: Present: soft, normal bowel sounds. Absent: distended, tenderness, guarding, rebound, rigid Extremities exam: Present: normal inspection, full ROM, normal capillary refill, other (Several skin tears to bilateral upper extremities and bilateral lower extremities.). Absent: tenderness, pedal edema, joint swelling, calf tenderness Neurological exam: Present: alert, oriented X3 Psychiatric exam: Present: normal affect, normal mood Skin exam: Present: warm, dry, intact, normal color. Absent: rash <Ronald Goodwin - Last Filed: 11/02/20 11:32> Course Vital Signs 11/02/20 09:29 Temperature 97 F L Pulse Rate 53 L Respiratory 19 Rate Blood Pressure 168/79 O2 Sat by Pulse 100 Oximetry Medical Decision Making - Lab Data Result diagrams: 11/02/20 09:57 11/02/20 09:57 <Thor Godoy - Last Filed: 11/02/20 11:25> - Lab Data Result diagrams: 11/02/20 09:57 11/02/20 09:57 - EKG Data -: EKG Interpreted by Me EKG shows normal: sinus rhythm Rate: normal - Radiology Data Radiology results: report reviewed, image reviewed <Ronald Goodwin - Last Filed: 11/02/20 11:32> - Medical Decision Making Patient reexamined and reevaluated by myself, Dr. Godoy. I do agree with PA findings. This includes diagnostic interpretation and treatment plan. CT reviewed. Patient is alert and acting appropriately per family. No focal neurological deficits on exam. Patient reportedly was working in the yard with a blower and lost his balance. Patient and family are updated on results and need for transfer. (Thor Godoy) 89-year-old male status post fall in the yard with head injury and multiple skin tears covering the extremities. Patient is on blood thinners. Labs, CT of the brain and C-spine, x-ray of the left elbow x-ray of the left knee, 4 mg of morphine ordered. Labs unremarkable. Computed tomography scan shows some mild intracranial bleeding with no midline shift and multiple parenchymal contusions. Case discussed with Dr. Godoy, patient will be transferred to [facility]. Dr. Tineo was consult good from [facility]'s trauma team and will accept the admit. He advised not to give Kcentra at this time. ER physician from [facility] was informed that Dr. Tineo did not want case central given prior to arrival. (Ronald Goodwin) - Lab Data Lab Results 11/02/20 11/02/20 11/02/20 Range/Units 09:57 09:57 09:57 WBC 5.4 (3.8-10.6) k/uL RBC 3.68 L (4.30-5.90) m/uL Hgb 12.0 L (13.0-17.5) gm/dL Hct 35.0 L (39.0-53.0) % MCV 95.2 (80.0-100.0) fL MCH 32.7 (25.0-35.0) pg MCHC 34.3 (31.0-37.0) g/dL RDW 13.2 (11.5-15.5) % Plt Count 159 (150-450) k/uL MPV 8.5 Neutrophils % 81 % Lymphocytes % 9 % Monocytes % 8 % Eosinophils % 0 % Basophils % 1 % Neutrophils # 4.4 (1.3-7.7) k/uL Lymphocytes # 0.5 L (1.0-4.8) k/uL Monocytes # 0.4 (0-1.0) k/uL Eosinophils # 0.0 (0-0.7) k/uL Basophils # 0.0 (0-0.2) k/uL PT 11.8 (9.0-12.0) sec INR 1.1 (<1.2) APTT 23.6 (22.0-30.0) sec Sodium 139 (137-145) mmol/L Potassium 4.2 (3.5-5.1) mmol/L Chloride 109 H (98-107) mmol/L Carbon Dioxide 19 L (22-30) mmol/L Anion Gap 11 mmol/L BUN 22 H (9-20) mg/dL Creatinine 1.23 (0.66-1.25) mg/dL Est GFR (CKD-EPI)AfAm 61 (>60 ml/min/1.73 sqM) Est GFR (CKD-EPI)NonAf 52 (>60 ml/min/1.73 sqM) Glucose 105 H (74-99) mg/dL Calcium 9.4 (8.4-10.2) mg/dL Total Bilirubin 0.9 (0.2-1.3) mg/dL AST 23 (17-59) U/L ALT 11 (4-49) U/L Alkaline Phosphatase 57 (38-126) U/L Total Protein 6.3 (6.3-8.2) g/dL Albumin 3.8 (3.5-5.0) g/dL - EKG Data EKG Comments: Ventricular rate 57 bpm, QRS duration 96 ms, QTC 422 ms, PRT axes */-36/54. Atrial fibrillation with slow ventricular response. Anterior septal infarct, age undetermined. Abnormal ECG. (Ronald Goodwin) - Radiology Data CT of the brain and C-spine: Mild parenchymal contusion to the anterior left frontal lobe with some trace adjacent acute subarachnoid blood. Greater degree of mild acute subarachnoid hemorrhage along the left sylvian fissure. A 1 cm extra-axial lesion anterior right frontal region probably represents meningioma. Moderate generalized atrophy. No midline shift, Hydrocephalus or herniation. Moderate spondylitic changes are noted fracture malalignment of the cervical spine. X-ray of the left knee and elbow: No acute fractures dislocations. (Ronald Goodwin) Disposition <Thor Godoy - Last Filed: 11/02/20 11:25> Time of Disposition: 11:32 - Out of Hospital Transfer - Req. Specs Out of Hospital Transfer - Requested Specifics: Other Emergency Center ([facility]) <Ronald Goodwin - Last Filed: 11/02/20 11:32> Clinical Impression: Acute spontaneous subarachnoid intracranial hemorrhage Disposition: OTHER INSTITUTION NOT DEFINED Condition: Stable Referrals: Daren Mullins MD [Primary Care Provider] - 1-2 days
[2020-11-02] MEDS ORDERED: DIPH,PERTUS(ACELL)TETVAC-LF 0.5 ML VIAL IM ONE (11:25)
--- NOTE | 2020-11-02 11:28 | XR ---
EXAMINATION TYPE: XR elbow complete LT DATE OF EXAM: 11/02/2020 COMPARISON: NONE HISTORY: FINDINGS: Three views of the elbow demonstrate no pathologic joint effusion. The osseous structures are intact . There is no acute fracture or dislocation. IMPRESSION: 1. No acute fracture or dislocation. If symptoms persist follow-up study in 7 to 10 days could be ob tained.
--- NOTE | 2020-11-02 11:30 | XR ---
EXAMINATION TYPE: XR knee 4V LT DATE OF EXAM: 11/02/2020 COMPARISON: NONE HISTORY: Pain TECHNIQUE: Three views are submitted. FINDINGS: Joint spaces are preserved. Osseous structures are intact. No acute fracture seen. Vascular calcif ications noted. Surgical clips are identified. Mild narrowing of the medial compartment of the knee j oint. Subtle chondrocalcinosis suggested. IMPRESSION: 1. No acute fracture or dislocation.
[2020-11-02 11:35] VITALS: BP 165/88; PULSE 81; RESP 17
== END 2020-11-02 11:47 | disposition other institution (70) ==
LOC: EC 09:27
DX: S06.6X9A Traumatic subarachnoid hemorrhage with loss of consciousness of unspecified duration, initial encounter (principal); S01.81XA Laceration without foreign body of other part of head, initial encounter; S41.112A Laceration without foreign body of left upper arm, initial encounter; S41.111A Laceration without foreign body of right upper arm, initial encounter; S81.812A Laceration without foreign body, left lower leg, initial encounter; S81.811A Laceration without foreign body, right lower leg, initial encounter; I10 Essential (primary) hypertension; I25.10 Atherosclerotic heart disease of native coronary artery without angina pectoris; I48.91 Unspecified atrial fibrillation; E78.5 Hyperlipidemia, unspecified; K21.9 Gastro-esophageal reflux disease without esophagitis; F03.90 Unspecified dementia, unspecified severity, without behavioral disturbance, psychotic disturbance, mood disturbance, and anxiety; Z79.01 Long term (current) use of anticoagulants; Z79.82 Long term (current) use of aspirin; Z79.899 Other long term (current) drug therapy; Z95.1 Presence of aortocoronary bypass graft; W18.30XA Fall on same level, unspecified, initial encounter
CPT/HCPCS: 36415; 93005; 80053; 85025; 85610; 85730; 73080; 73564; 72125; 70450; 96374; 99285; J2270